=== PATIENT | female | born 1995 | race Caucasian/White ===

== ENCOUNTER 2017-08-22 15:40 | Observation (INO) | payer SELFPAY ==
[~2017-08-22] VITALS: Ht 157.5 cm; Wt 63.5 kg
[~2017-08-22 15:40] MED LIST: HYDR-3720 PO
[2017-08-22 17:09] LABS: BASOPHILS # (AUTO) 0.1 10^3/uL (0.0-0.1); BASOPHILS % (AUTO) 1 % (0-10); EOSINOPHILS # (AUTO) 0.4 10^3/uL (0.0-0.3); EOSINOPHILS % (AUTO) 4 % (0-10); HEMATOCRIT 31 % (35-52); HEMOGLOBIN 10.7 G/DL (11.5-16.0); LYMPHOCYTES # (AUTO) 3.5 X 10^3 (1.0-4.0); LYMPHOCYTES % (AUTO) 34 % (12-44); MEAN CORPUSCULAR HEMOGLOBIN 28 PG (25-34); MEAN CORPUSCULAR HGB CONC 34 G/DL (32-36); MEAN CORPUSCULAR VOLUME 82 FL (80-99); MEAN PLATELET VOLUME 9.2 FL (7.4-10.4); MONOCYTES # (AUTO) 0.7 X 10^3 (0.0-1.0); MONOCYTES % (AUTO) 6 % (0-12); NEUTROPHILS # (AUTO) 5.8 X 10^3 (1.8-7.8); NEUTROPHILS % (AUTO) 55 % (42-75); PLATELET COUNT 391 10^3/uL (130-400); RED CELL DISTRIBUTION WIDTH 12.5 % (10.0-14.5); WHITE BLOOD COUNT 10.4 10^3/uL (4.3-11.0)
[2017-08-22 17:10] LABS: BILIRUBIN,URINE NEGATIVE (NEGATIVE); CLARITY,URINE BLOODY; COLOR,URINE RED; GLUCOSE, URINE (UA) NEGATIVE (NEGATIVE); KETONES,URINE NEGATIVE (NEGATIVE); LEUKOCYTE ESTERASE ,URINE NEGATIVE (NEGATIVE); NITRITE,URINE NEGATIVE (NEGATIVE); PH,URINE 7 (5-9); PROTEIN,URINE 4+ (NEGATIVE); UROBILINOGEN,URINE NORMAL (NORMAL)
[2017-08-22] MEDS ORDERED: LORA10TA7 PO (17:12)
[2017-08-22 17:22] LABS: BACTERIA,URINE NEGATIVE /HPF; RBC,URINE TNTC /HPF
[2017-08-22 17:29] LABS: ALANINE AMINOTRANSFERASE 20 U/L (0-55); ALBUMIN 4.3 GM/DL (3.2-4.5); ALKALINE PHOSPHATASE 64 U/L (40-136); BILIRUBIN,TOTAL 0.3 MG/DL (0.1-1.0); BUN/CREATININE RATIO 14; CARBON DIOXIDE 26 MMOL/L (21-32); CHLORIDE 106 MMOL/L (98-107); CREATININE SERUM 0.76 MG/DL (0.60-1.30); GFR ESTIMATED > 60; GLUCOSE 91 MG/DL (70-105); POTASSIUM 3.7 MMOL/L (3.6-5.0); SODIUM 140 MMOL/L (135-145); TOTAL PROTEIN 7.2 GM/DL (6.4-8.2)
[2017-08-22] MEDS ORDERED: KETOROLAC 30 MG/ML VIAL IVP STA (18:22)
[2017-08-22] MEDS ORDERED: NS IV 1000 ML 1,000 ML IV ONE ×2 (18:22→21:13)
--- NOTE | 2017-08-22 18:27 | Diagnostic Imaging Report ---
INDICATION: Heavy bleeding and clots. FINDINGS: There is complex fluid distending the lower endometrial and endocervical canal. There does appear to be some color Doppler blood flow to the abnormal thickened endometrium. No myometrial mass. There is an anechoic simple right ovarian cyst measuring 2.3 cm. The adnexa and ovaries appeared otherwise normal. IMPRESSION: Heterogeneous thickening and complex fluid, likely blood distending the lower endometrial and endocervical canal with abnormal color Doppler blood flow. Dictated by: Dictated on workstation # [id number]
[2017-08-22] MEDS ORDERED: ONDANSETRON 4 MG/2 ML (SDV) Z0FRAN IVP ONE ×2 (18:30→23:00)
--- NOTE | 2017-08-22 18:38 | ED GU-Female ---
General Chief Complaint: -Female Stated Complaint: HEAVY VAGINAL BLEEDING Nursing Triage Note: Pt reports having heaving vaginal bleeding/clots since tuesday. pt reports being able to feel when she has the clots passing, and saturating an overnight pad every 1 1/2 hr. reports having irregular periods x 4 months now. pt is not on control and does not believe she is d/t every test being negative. nausea/vomiting on mothers day and has had intermittent nausea since then. pt has had a miscarriage approx 4-5 yrs ago and has had painful periods and painful intercourse since, but never to this extent. Nursing Sepsis Screen: No Definite Risk Source: patient Exam Limitations: no limitations History of Present Illness Date Seen by Provider: August 22, 2017 Initial Comments 21-year-old female patient presents to the emergency department with complaints of heavy vaginal bleeding beginning Tuesday. Patient reports having a D&C for a missed in 2012. States her periods have never been normal since. Reports last 4 months having irregular periods with increasing flow. Does complain of nausea and vomiting Mother's Day. Intermittent nausea today. Patient is A1. Denies using control or having an IUD/implant. Denies seeing anyone for the irregular menses. Timing/Duration: constant, other (onset 08/19/17) Severity/Quality: aching, cramping Location: suprapubic Radiation: none Activities at Onset: none Sexual [place] History: less than 2 months ago, single partner Modifying Factors: Worsens With Palpation Allergies and Home Medications Allergies Uncoded Allergies: sulfa (Allergy, Mild, 10/18/12) Home Medications Loratadine 10 Mg Tablet, 10 MG PO DAILY, (Reported) Tranexamic Acid 650 Mg Tablet, 650 MG PO TID Prescribed by: ANDRESSA MATTSON on 08/22/172000 Patient Home Medication List Home Medication List Reviewed: Yes Review of Systems Constitutional: No chills; dizziness; No fever; malaise EENTM: no symptoms reported Respiratory: No cough, No dyspnea on exertion, No short of breath Cardiovascular: No chest pain, No edema, No palpitations, No syncope Gastrointestinal: see HPI, abdominal pain; No constipation, No diarrhea; loss of appetite; No melena; nausea; No vomiting Genitourinary: see HPI; denies burning, denies dysuria, denies frequency, denies flank pain; pain, other (vaginal bleeding) : No (reports taking multiple tests at home which were negative) Musculoskeletal: no symptoms reported Skin: no symptoms reported Psychiatric/Neurological: No Symptoms Reported All Other Systemes Reviewed Negative Unless Noted: Yes (Negative excepted noted.) Past Eqxdjtb-Bipvdf-[id number] Hx Patient Social History Alcohol Use: Denies Use Recreational Drug Use: No Smoking Status: Never a Smoker 2nd Hand Smoke Exposure: No Recent Foreign Travel: No Contact w/Someone Who Travel: No Recent Infectious Disease Expo: No Recent Hopitalizations: No Physical Abuse: No Sexual Abuse: No Mistreated: No Fear: No Immunizations Up To Date Tetanus Booster (TDap): More than 5yrs PED Vaccines UTD: Yes Seasonal Allergies Seasonal Allergies: Yes Past Medical History Surgeries: Yes (D&C 2012) Respiratory: No Cardiac: No Neurological: No : No (unsure) Hx : 1 Hx Para: 0 Hx Total # of Abortions (Sp): 1 Female Reproductive Disorders: Menstrual Problems (since D&C in 2012) Sexually Transmitted Disease: No HIV/AIDS: No Genitourinary: No Gastrointestinal: No Musculoskeletal: No Endocrine: No HEENT: No Cancer: No Psychosocial: No Nursing Suicide Risk Score: 1 Integumentary: No Blood Disorders: No Family Medical History Reviewed Nursing Family Hx No Pertinent Family Hx Physical Exam Vital Signs Vital Signs - First Documented 08/22/17 08/22/17 16:48 23:05 Temp 98.0 Pulse 132 Resp 18 B/P (MAP) 135/97 (110) Pulse Ox 100 O2 Delivery Room Air Capillary Refill : Less Than 3 Seconds General Appearance: WD/WN, no apparent distress HEENT: PERRL/EOMI, pharynx normal Neck: supple, normal inspection Cardiovascular: normal peripheral pulses, regular rate, rhythm, no edema, no gallop, no murmur Respiratory: lungs clear, normal breath sounds, no respiratory distress, no accessory muscle use Gastrointestinal: normal bowel sounds, soft, no organomegaly; No distended; guarding (suprapubic guarding); No rebound; tenderness (suprapubic tenderness) Pelvic: normal external exam; No lesions, No mass; tender w/ cervical motion, tender adnexa, tender uterus, vaginal bleeding (a small amount of dark blood noted without clots or active bleeding.) Back: normal inspection, no CVA tenderness Extremities: no pedal edema, normal capillary refill Neurologic/Psychiatric: alert, normal mood/affect, oriented x 3 Skin: warm/dry, pallor Progress/Results/Core Measures Suspected Sepsis Recent Fever Within 48 Hours: No Infection Criteria Present: None New/Unexplained Altered Menta: No Sepsis Screen: No Definite Risk SIRS Temperature: Pulse: 132 Respiratory Rate: 18 Laboratory Tests 08/22/17 17:00: White Blood Count 10.4 08/22/17 21:00: White Blood Count 11.5H Blood Pressure 135 /97 Mean: 110 Laboratory Tests 08/22/17 17:00: Creatinine 0.76, Platelet Count 391, Total Bilirubin 0.3 08/22/17 17:02: INR Comment 1.0 08/22/17 21:00: Platelet Count 298 Results/Orders Lab Results Laboratory Tests Test 08/22/17 16:51 08/22/17 17:00 08/22/17 17:02 08/22/17 21:00 Range/Units Urine Color RED H Urine Clarity BLOODY H Urine pH 7 5-9 Urine Specific [place] 1.010 L 1.016-1.022 Urine Protein 4+ NEGATIVE Urine Glucose (UA) NEGATIVE NEGATIVE Urine Ketones NEGATIVE NEGATIVE Urine Nitrite NEGATIVE NEGATIVE Urine Bilirubin NEGATIVE NEGATIVE Urine Urobilinogen NORMAL NORMAL MG/DL Urine Leukocyte Esterase NEGATIVE NEGATIVE Urine RBC (Auto) 5+ H NEGATIVE Urine RBC TNTC H /HPF Urine WBC 2-5 /HPF Urine Squamous Epithelial Cells NONE /HPF Urine Crystals NONE /LPF Urine Bacteria NEGATIVE /HPF Urine Casts NONE /LPF Urine Mucus NEGATIVE /LPF Urine Culture Indicated NO White Blood Count 10.4 11.5 H 4.3-11.0 10^3/uL Red Blood Count 3.80 L 3.08 L 4.35-5.85 10^6/uL Hemoglobin 10.7 L 8.7 L 11.5-16.0 G/DL Hematocrit 31 L 26 L 35-52 % Mean Corpuscular Volume 82 83 80-99 FL Mean Corpuscular Hemoglobin 28 28 25-34 PG Mean Corpuscular Hemoglobin Concent 34 34 32-36 G/DL Red Cell Distribution Width 12.5 12.1 10.0-14.5 % Platelet Count 391 298 130-400 10^3/uL Mean Platelet Volume 9.2 9.4 7.4-10.4 FL Neutrophils (%) (Auto) 55 58 42-75 % Lymphocytes (%) (Auto) 34 34 12-44 % Monocytes (%) (Auto) 6 4 0-12 % Eosinophils (%) (Auto) 4 3 0-10 % Basophils (%) (Auto) 1 1 0-10 % Neutrophils # (Auto) 5.8 6.7 1.8-7.8 X 10^3 Lymphocytes # (Auto) 3.5 3.9 1.0-4.0 X 10^3 Monocytes # (Auto) 0.7 0.5 0.0-1.0 X 10^3 Eosinophils # (Auto) 0.4 H 0.4 H 0.0-0.3 10^3/uL Basophils # (Auto) 0.1 0.1 0.0-0.1 10^3/uL Sodium Level 140 135-145 MMOL/L Potassium Level 3.7 3.6-5.0 MMOL/L Chloride Level 106 98-107 MMOL/L Carbon Dioxide Level 26 21-32 MMOL/L Anion Gap 8 5-14 MMOL/L Blood Urea Nitrogen 11 7-18 MG/DL Creatinine 0.76 0.60-1.30 MG/DL Estimat Glomerular Filtration Rate > 60 BUN/Creatinine Ratio 14 Glucose Level 91 70-105 MG/DL Calcium Level 9.0 8.5-10.1 MG/DL Total Bilirubin 0.3 0.1-1.0 MG/DL Aspartate Amino Transf (AST/SGOT) 19 5-34 U/L Alanine Aminotransferase (ALT/SGPT) 20 0-55 U/L Alkaline Phosphatase 64 40-136 U/L Total Protein 7.2 6.4-8.2 GM/DL Albumin 4.3 3.2-4.5 GM/DL Serum Test, Qualitative NEGATIVE NEGATIVE Prothrombin Time 13.3 12.2-14.7 SEC INR Comment 1.0 0.8-1.4 Activated Partial Thromboplast Time 29 24-35 SEC Test 08/22/17 23:44 Range/Units My Orders Orders - ANDRESSA MATTSON Cbc With Automated Diff (08/22/17 16:47) Comprehensive Metabolic Panel (08/22/17 16:47) Hcg,Qualitative Serum (08/22/17 16:47) Ua Culture If Indicated (08/22/17 16:47) Saline Lock/Iv-Start (08/22/17 16:47) Us Non Ob Pelvis Comp/Transvag (08/22/17 17:40) Ns Iv 1000 Ml (Sodium Chloride 0.9%) (08/22/17 18:22) Ondansetron Injection (Zofran Injectio (08/22/17 18:30) Ketorolac Injection (Toradol Injection) (08/22/17 18:22) Protime With Inr (08/22/17 18:22) Partial Thromboplastin Time (08/22/17 18:22) Tranexamic Acid Injection (Cyklokapron I (08/22/17 19:45) Cbc With Automated Diff (08/22/17 20:56) Saline Lock/Iv-Start (08/22/17 21:13) Ns Iv 1000 Ml (Sodium Chloride 0.9%) (08/22/17 21:13) Acetaminophen Tablet (Tylenol Tablet) (08/22/17 21:27) Ondansetron Injection (Zofran Injectio (08/22/17 23:00) Wet Prep (08/22/17 23:29) Neisseria Gonorrhea Dna (08/22/17 23:29) Genital Culture (08/22/17 23:29) Chlamydia Trachomatis Swab (08/22/17 23:29) Morphine Injection (Morphine Injection (08/22/17 23:56) Medications Given in ED Current Medications Medications Dose Ordered Sig/Vera Route Start Time Stop Time Status Last Admin Dose Admin Ondansetron HCl 4 mg ONCE ONCE IVP 08/22/17 18:30 08/22/17 18:31 DC 08/22/17 18:32 4 MG Sodium Chloride 1,000 ml @ 0 mls/hr Q0M ONCE IV 08/22/17 18:22 08/22/17 18:24 DC 08/22/17 18:32 0 MLS/HR Sodium Chloride 1,000 ml @ 0 mls/hr Q0M ONCE IV 08/22/17 21:13 08/22/17 21:14 DC 08/22/17 21:38 0 MLS/HR Tranexamic Acid 600 mg ONCE ONCE IV 08/22/17 19:45 08/22/17 19:53 DC 08/22/17 20:18 600 MG Vital Signs/I&O 08/22/17 08/22/17 16:48 23:05 Temp 98.0 Pulse 132 132 Resp 18 18 B/P (MAP) 135/97 (110) 135/97 (110) Pulse Ox 100 100 O2 Delivery Room Air Capillary Refill : Less Than 3 Seconds Blood Pressure Mean: 110 Diagnostic Imaging Diagonstic Imaging: Ultrasound Plain Films/CT/US/NM/MRI: pelvis Comments US NON OB PELVIS COMP/TRANSVAG INDICATION: Heavy bleeding and clots. FINDINGS: There is complex fluid distending the lower endometrial and endocervical canal. There does appear to be some color Doppler blood flow to the abnormal thickened endometrium. No myometrial mass. There is an anechoic simple right ovarian cyst measuring 2.3 cm. The adnexa and ovaries appeared otherwise normal. IMPRESSION: Heterogeneous thickening and complex fluid, likely blood distending the lower endometrial and endocervical canal with abnormal color Doppler blood flow. Dictated on workstation # [id number] Reviewed: Reviewed by Me (radiology report reviewed by me) Departure Communication (Admissions) Dr. Samia Saunders 2049 patient was noted to become pale, lightheaded, and diaphoretic with sitting up. Patient is alert/oriented 4, no acute distress. Lungs clear to auscultation, cardiac vascular regular rate and rhythm, no murmur. Patient is pale and diaphoretic. Change in condition discussed with Dr. Saunders. Request repeat CBC. Impression Primary Impression: Acute blood loss anemia Additional Impressions: Menorrhagia Qualified Codes: N92.1 - Excessive and frequent menstruation with irregular cycle Ovarian cyst Qualified Codes: N83.201 - Unspecified ovarian cyst, right side Nausea & vomiting Abdominal pain Disposition: ADMITTED INPATIENT Condition: Stable Admissions Decision to Admit Reason: Admit from ER (General) Decision to Admit/Date: August 22, 2017 Time/Decision to Admit Time: 23:30 Departure-Patient Inst. Referrals: NO,LOCAL PHYSICIAN (PCP) Primary Care Physician SAMIA SAUNDERS DO Add. Discharge Instructions: All discharge instructions reviewed with patient and/or family. Voiced understanding. ANDRESSA MATTSON August 22, 2017 18:38
[2017-08-22 18:40] LABS: PROTHROMBIN TIME PATIENT 13.3 SEC (12.2-14.7)
[2017-08-22] MEDS ORDERED: TRANEXAMIC ACID 100 MG/ML 10 ML INJECTION IV ONE (19:45)
[2017-08-22] MEDS ORDERED: TRAN650T5 PO (20:01)
[2017-08-22 21:10] LABS: BASOPHILS # (AUTO) 0.1 10^3/uL (0.0-0.1); BASOPHILS % (AUTO) 1 % (0-10); EOSINOPHILS # (AUTO) 0.4 10^3/uL (0.0-0.3); EOSINOPHILS % (AUTO) 3 % (0-10); HEMATOCRIT 26 % (35-52); HEMOGLOBIN 8.7 G/DL (11.5-16.0); LYMPHOCYTES # (AUTO) 3.9 X 10^3 (1.0-4.0); LYMPHOCYTES % (AUTO) 34 % (12-44); MEAN CORPUSCULAR HEMOGLOBIN 28 PG (25-34); MEAN CORPUSCULAR HGB CONC 34 G/DL (32-36); MEAN CORPUSCULAR VOLUME 83 FL (80-99); MEAN PLATELET VOLUME 9.4 FL (7.4-10.4); MONOCYTES # (AUTO) 0.5 X 10^3 (0.0-1.0); MONOCYTES % (AUTO) 4 % (0-12); NEUTROPHILS # (AUTO) 6.7 X 10^3 (1.8-7.8); NEUTROPHILS % (AUTO) 58 % (42-75); PLATELET COUNT 298 10^3/uL (130-400); RED BLOOD COUNT 3.08 10^6/uL (4.35-5.85); RED CELL DISTRIBUTION WIDTH 12.1 % (10.0-14.5); WHITE BLOOD COUNT 11.5 10^3/uL (4.3-11.0)
[2017-08-22] MEDS ORDERED: ACETAMINOPHEN 500 MG TAB (TYLENOL) PO STA (21:27)
[2017-08-22] MEDS ORDERED: medroxyPROGESTERone 10 MG (PROVERA) TAB PO ONE (23:45)
[2017-08-22] MEDS ORDERED: morphine INJ 10 MG/ML 1ML (SYR OR VIAL) IVP STA (23:56)
[2017-08-23] MEDS ORDERED: morphine INJ 4 MG/ML 1 ML (VIAL/SYRINGE) ONE (00:05)
[2017-08-23] MEDS ORDERED: LACTATED RINGERS 1,000 ML IV SCH (00:15)
[2017-08-23 00:23] VITALS: BP 121/78
[2017-08-23] MEDS ORDERED: fentaNYL INJECTION 100 MCG/2 ML AMP IVP PRN (00:30)
[2017-08-23] MEDS ORDERED: HYDROcodone/APAP 5 MG/325 MG (LORTAB) TAB PO PRN (00:30)
[2017-08-23] MEDS ORDERED: METOCLOPRAMIDE INJ 10 MG/2 ML (REGLAN) IVP PRN (00:30)
[2017-08-23] MEDS ORDERED: ONDANSETRON 4 MG/2 ML (SDV) Z0FRAN IVP PRN (00:30)
--- OUTSIDE RECORDS SUMMARY | 2017-08-23 02:45 | XMS REPORT | Continuity of Care Document ---
Author Author [facility] Organization [facility] Address Unknown Phone Unavailable Allergies There is no data. Medications There is no data. Problems Date Dx Coded Attending Type Code Diagnosis Diagnosed By 12/30/2008 JOSE CHURCH DO V05.4 VARICELLA, CHICKENPOX 12/30/2008 JOSE CHURCH DO V06.5 DT, TETANUS-DIPHTHERIA [Td] ,TDAP 08/18/2010 JOSE CHURCH DO 719.47 PAIN IN JOINT INVOLVING ANKLE AND FOOT 10/13/2011 JOSE CHURCH DO 785.1 PALPITATIONS 06/18/2013 JOSE CHURCH DO 692.6 CONTACT DERMATITIS AND OTHER ECZEMA DUE TO PLANTS (EXCEPT FOOD) Procedures Code [place] [address] THERAPUTIC INJ SQ/IM 06/18/2013 J1030 DEPO MEDROL 40 MG INJ 06/18/2013 J3301 KENALOG INJ, PER 10 MG 06/18/2013 Results There is no data. Encounters ACCT No. Visit Date/Time Discharge Status Pt. Type Provider Facility Loc./Unit Complaint [id number] 10/18/2012 11:14:00 10/18/2012 14:50:00 DIS Outpatient [id number] 06/18/2013 13:51:00 06/18/2013 23:59:59 CLS Outpatient JOSE CHURCH DO
[2017-08-23] MEDS ORDERED: KETOROLAC 30 MG/ML VIAL IVP PRN (03:00)
[2017-08-23 04:54] VITALS: BP 111/57
[2017-08-23 07:38] LABS: BASOPHILS % (AUTO) 1 % (0-10); EOSINOPHILS # (AUTO) 0.3 10^3/uL (0.0-0.3); EOSINOPHILS % (AUTO) 4 % (0-10); HEMATOCRIT 24 % (35-52); LYMPHOCYTES # (AUTO) 4.1 X 10^3 (1.0-4.0); LYMPHOCYTES % (AUTO) 47 % (12-44); MEAN CORPUSCULAR HEMOGLOBIN 28 PG (25-34); MEAN CORPUSCULAR HGB CONC 34 G/DL (32-36); MEAN CORPUSCULAR VOLUME 84 FL (80-99); MEAN PLATELET VOLUME 8.8 FL (7.4-10.4); MONOCYTES # (AUTO) 0.5 X 10^3 (0.0-1.0); MONOCYTES % (AUTO) 6 % (0-12); NEUTROPHILS # (AUTO) 3.8 X 10^3 (1.8-7.8); NEUTROPHILS % (AUTO) 43 % (42-75); PLATELET COUNT 305 10^3/uL (130-400); RED BLOOD COUNT 2.84 10^6/uL (4.35-5.85); RED CELL DISTRIBUTION WIDTH 12.5 % (10.0-14.5); WHITE BLOOD COUNT 8.8 10^3/uL (4.3-11.0)
[2017-08-23 07:57] LABS: ALANINE AMINOTRANSFERASE 16 U/L (0-55); ALBUMIN 3.3 GM/DL (3.2-4.5); ALKALINE PHOSPHATASE 46 U/L (40-136); BILIRUBIN,TOTAL 0.6 MG/DL (0.1-1.0); BUN/CREATININE RATIO 10; CALCIUM 8.1 MG/DL (8.5-10.1); CARBON DIOXIDE 25 MMOL/L (21-32); CHLORIDE 112 MMOL/L (98-107); CREATININE SERUM 0.68 MG/DL (0.60-1.30); GFR ESTIMATED > 60; GLUCOSE 88 MG/DL (70-105); POTASSIUM 3.8 MMOL/L (3.6-5.0); SODIUM 142 MMOL/L (135-145); TOTAL PROTEIN 5.3 GM/DL (6.4-8.2)
[2017-08-23 08:00] VITALS: BP 111/67
--- NOTE | 2017-08-23 08:34 | Short Stay Summary ---
History of Present Illness History of Present Illness Reason for visit/HPI Menorrhagia, anemia (acute blood), nausea, emesis, near syncope Date of Admission August 22, 2017 at 22:57 Date of Discharge 08/23/17 Time Seen by Provider: 08:00 Attending Physician Samia Saunders DO Admitting Physician No,Local Physician Consult This is a 21 year old who presented to the ED with complaint of heavy vaginal bleeding. She reports menses was a few days late (though states they aren't exactly every 28-30 days) and started bleeding on Tuesday. Started passing clots and soaking pads ever 1 - 1 1/2 hours. Reports she has never had menses like this, though she has had heavy menses in the past. Presented to the ED due to this and feeling lightheaded. Reports nausea and emesis last weekend. she Has a history of SAB in 2012 and had dilation and curettage and has had "menstrual problems" since that time. She reportedly had hemoglobin of 10.7 on admit to ED with BP 135/97 and P 135. I was told that her pulse was 90s prior to admission. BP was improved and normalized (but I do not have the recorded number). Hgb decreased to 8.7. She was given TXA x 1 dose and bleeding is much improved. US done from ED showed thickened endometrium Date of Exam: 08/22/17 US NON OB PELVIS COMP/TRANSVAG INDICATION: Heavy bleeding and clots. FINDINGS: There is complex fluid distending the lower endometrial and endocervical canal. There does appear to be some color Doppler blood flow to the abnormal thickened endometrium. No myometrial mass. There is an anechoic simple right ovarian cyst measuring 2.3 cm. The adnexa and ovaries appeared otherwise normal. IMPRESSION: Heterogeneous thickening and complex fluid, likely blood distending the lower endometrial and endocervical canal with abnormal color Doppler blood flow. Dictated by: Dictated on workstation # [id number] Dict: 08/22/171823 Trans: 08/22/171917 Interpreted by: LESLEY SERRANO Electronically signed by: LESLEY SERRANO 08/22/171917 She was going to be dc to home last night. But when she got up to void, was lightheaded and nauseous. She was admitted for observation due to this. Since admission, has had scant bleeding. she has received an additional liter of fluid. She is not nauseous but has no appetite this am. She is not using any type of contraception though she does not want at this time. She does not have a primary physician nor an dispatcher automobile rental at this time. Allergies and Home Medications Allergies Uncoded Allergies: sulfa (Allergy, Mild, 10/18/12) Home Medications Loratadine 10 Mg Tablet, 10 MG PO DAILY, (Reported) Patient Home Medication List Home Medication List Reviewed: Yes Past [place]-Uafxuq Hx Patient Social History Marrital Status: single Number of Children: 0 Alcohol Use: Denies Use Recreational Drug Use: No Smoking Status: Never a Smoker 2nd Hand Smoke Exposure: No Recent Foreign Travel: No Contact w/other who traveled: No Recent Hopitalizations: No Recent Infectious Disease Expo: No Immunizations Up To Date Tetanus Booster (TDap): More than 5yrs Pediatric: Yes Seasonal Allergies Seasonal Allergies: Yes Surgeries Yes (D&C 2012) Respiratory No Cardiovascular No Neurological No Reproductive System : No (unsure) Last Menstrual Period: August 19, 2017 Hx : 1 Hx Para: 0 Hx Total # of Abortions (Spona: 1 Sexually Transmitted Disease: No HIV/AIDS: No Female Reproductive Disorders: Menstrual Problems (since D&C in 2012) Genitourinary No Gastrointestinal No Musculoskeletal No Endocrine History of Endocrine Disorders: No HEENT History of HEENT Disorders: No Cancer No Psychosocial History of Psychiatric Problem: No Integumentary History of Skin or Integumenta: No Blood Transfusions History of Blood Disorders: No Reviewed Nursing Assessment Reviewed/Agree w Nursing PMH: Yes Family Medical History Significant Family History: No Pertinent Family Hx Constitutional: no symptoms reported EENTM: no symptoms reported Respiratory: no symptoms reported Cardiovascular: no symptoms reported Gastrointestinal: LLQ (improved) Genitourinary: no symptoms reported LMP: August 19, 2017 Control/STD Prophylaxis: None Musculoskeletal: no symptoms reported Skin: no symptoms reported Psychiatric/Neurological: No Symptoms Reported All Other Systems Reviewed Negative Unless Noted: Yes Physical Exam Vital Signs Vital Signs - First Documented 08/22/17 08/22/17 16:48 23:05 Temp 98.0 Pulse 132 Resp 18 B/P (MAP) 135/97 (110) Pulse Ox 100 O2 Delivery Room Air Capillary Refill : Less Than 3 Seconds General Appearance: No Apparent Distress, WD/WN Short Stay Diagnosis Discharge Diagnosis-Short Stay Admission Diagnosis: Vaginal hemorrhage, acute blood loss anemia Abnormal uterine bleeding Thickened endometrium Final Discharge Diagnosis: Same Conclusion Labs Laboratory Tests 08/22/17 16:51: Urine Color REDH, Urine Clarity BLOODYH, Urine pH 7, Urine Specific [place] 1.010L, Urine Protein 4+, Urine Glucose (UA) NEGATIVE, Urine Ketones NEGATIVE, Urine Nitrite NEGATIVE, Urine Bilirubin NEGATIVE, Urine Urobilinogen NORMAL, Urine Leukocyte Esterase NEGATIVE, Urine RBC (Auto) 5+H, Urine RBC TNTCH, Urine WBC 2-5, Urine Squamous Epithelial Cells NONE, Urine Crystals NONE, Urine Bacteria NEGATIVE, Urine Casts NONE, Urine Mucus NEGATIVE, Urine Culture Indicated NO 08/22/17 17:00: White Blood Count 10.4, Red Blood Count 3.80L, Hemoglobin 10.7L, Hematocrit 31L , Mean Corpuscular Volume 82, Mean Corpuscular Hemoglobin 28, Mean Corpuscular Hemoglobin Concent 34, Red Cell Distribution Width 12.5, Platelet Count 391, Mean Platelet Volume 9.2, Neutrophils (%) (Auto) 55, Lymphocytes (%) (Auto) 34, Monocytes (%) (Auto) 6, Eosinophils (%) (Auto) 4, Basophils (%) (Auto) 1, Neutrophils # (Auto) 5.8, Lymphocytes # (Auto) 3.5, Monocytes # (Auto) 0.7, Eosinophils # (Auto) 0.4H, Basophils # (Auto) 0.1, Sodium Level 140, Potassium Level 3.7, Chloride Level 106, Carbon Dioxide Level 26, Anion Gap 8, Blood Urea Nitrogen 11, Creatinine 0.76, Estimat Glomerular Filtration Rate > 60, BUN/ Creatinine Ratio 14, Glucose Level 91, Calcium Level 9.0, Total Bilirubin 0.3, Aspartate Amino Transf (AST/SGOT) 19, Alanine Aminotransferase (ALT/SGPT) 20, Alkaline Phosphatase 64, Total Protein 7.2, Albumin 4.3, Serum Test, Qualitative NEGATIVE 08/22/17 17:02: Prothrombin Time 13.3, INR Comment 1.0, Activated Partial Thromboplast Time 29 08/22/17 21:00: White Blood Count 11.5H, Red Blood Count 3.08L, Hemoglobin 8.7L, Hematocrit 26L , Mean Corpuscular Volume 83, Mean Corpuscular Hemoglobin 28, Mean Corpuscular Hemoglobin Concent 34, Red Cell Distribution Width 12.1, Platelet Count 298, Mean Platelet Volume 9.4, Neutrophils (%) (Auto) 58, Lymphocytes (%) (Auto) 34, Monocytes (%) (Auto) 4, Eosinophils (%) (Auto) 3, Basophils (%) (Auto) 1, Neutrophils # (Auto) 6.7, Lymphocytes # (Auto) 3.9, Monocytes # (Auto) 0.5, Eosinophils # (Auto) 0.4H, Basophils # (Auto) 0.1 08/22/17 23:44: 08/23/17 07:28: White Blood Count 8.8, Red Blood Count 2.84L, Hemoglobin 8.0L, Hematocrit 24L, Mean Corpuscular Volume 84, Mean Corpuscular Hemoglobin 28, Mean Corpuscular Hemoglobin Concent 34, Red Cell Distribution Width 12.5, Platelet Count 305, Mean Platelet Volume 8.8, Neutrophils (%) (Auto) 43, Lymphocytes (%) (Auto) 47H , Monocytes (%) (Auto) 6, Eosinophils (%) (Auto) 4, Basophils (%) (Auto) 1, Neutrophils # (Auto) 3.8, Lymphocytes # (Auto) 4.1H, Monocytes # (Auto) 0.5, Eosinophils # (Auto) 0.3, Basophils # (Auto) 0.0, Sodium Level 142, Potassium Level 3.8, Chloride Level 112H, Carbon Dioxide Level 25, Anion Gap 5, Blood Urea Nitrogen 7, Creatinine 0.68, Estimat Glomerular Filtration Rate > 60, BUN/ Creatinine Ratio 10, Glucose Level 88, Calcium Level 8.1L, Total Bilirubin 0.6, Aspartate Amino Transf (AST/SGOT) 14, Alanine Aminotransferase (ALT/SGPT) 16, Alkaline Phosphatase 46, Total Protein 5.3L, Albumin 3.3 Conclusion/Plan Patient is currently stable. Bleeding has slowed or stopped. Will discharge with Iron and lysteda (TXA) for acute bleeding. Follow up in the office for management. Start iron. Repeat US once bleeding has stopped. Consider dilation and curettage at that time if the lining continues to be thickened, though I suspect that the thickening is due to bleeding. Consider OCPs vs Mirena vs Depo Provera for menstrual regulation. SAMIA SAUNDERS DO August 23, 2017 08:34
[2017-08-23] MEDS ORDERED: raNItidine 50 MG/2 ML INJ (ZANTAC) IM/IV SCH (09:00)
[2017-08-23] MEDS ORDERED: FERR-84 PO (09:10)
[2017-08-23] MEDS ORDERED: TRAN650T2 PO (09:10)
--- NOTE | 2017-08-23 09:33 | Discharge Inst-Women's Service ---
Discharge Inst-Women's Serv Depart Medication/Instructions New, Converted or Re-Newed RX: RX on Chart Instructions Rx given for provera 2 po tid x 5 days. Only fill rx if bleeding starts again prior to follow up fill out paperwork and FA paperwork prior to follow up. Call for questions or concerns Start iron twice daily or flintstones complete 2 po twice daily Final Diagnosis menorrhagia acute blood loss anemia vaginal hemorrhage abnormal uterine bleeding Consults/Follow Up Additional Follow Up: Yes (TuesdaySeptember 02 at 10:45. Paperwork given) Activity Activity: Activity as Tolerated Driving Instructions: You May Drive NO SMOKING: NO SMOKING Nothing Inside Vagina: No Douching Diet Discharge Diet: No Restrictions Symptoms to Report to : Bleeding Excessive, Pain Increased, Fever Over 101 Degrees F, Vaginal Bleeding Increase, Cramps in Feet or Legs, Vaginal Discharge Foul For Any Problems or Questions: Contact Your Physician SAMIA SAUNDERS DO August 23, 2017 09:16
[2017-08-23] MEDS ORDERED: MEDR10TA PO (09:34)
--- OUTSIDE RECORDS SUMMARY | 2017-08-23 09:52 | XMS REPORT | Continuity of Care Document ---
Author Author [facility] Organization [facility] Address Unknown Phone Unavailable Allergies There is [...] Procedures Code [place] [address] THERAPUTIC INJ SQ/IM 06/18/2013 J1030 DEPO MEDROL 40 MG INJ 06/18/2013 J3301 KENALOG INJ, PER 10 MG 06/18/2013 Results There is no data. Encounters ACCT No. Visit Date/Time Discharge Status Pt. Type Provider Facility Loc./Unit Complaint [id number] 10/18/2012 11:14:00 10/18/2012 14:50:00 DIS Outpatient [id number] 06/18/2013 13:51:00 06/18/2013 23:59:59 CLS Outpatient JOSE CHURCH DO
== END 2017-08-23 10:30 | disposition home or self-care (01) ==
LOC: EDUNIT# 15:40 → ER 15:43 → WS 22:57 → UNDOADMOB 22:57 → WS 23:59 → UNDODISOB 08-23 10:30
PROVIDERS: ADMIT Obstetrics & Gynecology; ATTEND Obstetrics & Gynecology
DX: D62 Acute posthemorrhagic anemia (principal); N92.1 Excessive and frequent menstruation with irregular cycle; N83.201 Unspecified ovarian cyst, right side; R93.5 Abnormal findings on diagnostic imaging of other abdominal regions, including retroperitoneum
CPT/HCPCS: 36415; 76830; 76856; 80053; 81000; 84703; 85025; 85246; 85610; 85730; 86850; 86900; 86901; 86920; 87070; 87210; 87491; 87591; 96361; 96374; 96375; 96376; G0378

== ENCOUNTER → 2017-09-08 | Outpatient (CLI) | payer SELFPAY ==
[~2017-09-08] MED LIST changes: +FERR-84 PO; +LORA10TA7 PO; +MEDR10TA PO; +TRAN650T2 PO; +TRAN650T5 PO
--- NOTE | 2017-09-08 16:21 | Diagnostic Imaging Report ---
EXAMINATION: Pelvic ultrasound. INDICATION: Pelvic pain. FINDINGS: The previous pelvic ultrasound exam performed on 08/22/2017 noted heterogeneous thickening and complex fluid within the lower endometrium and endocervical canal. That finding is again evident and does not seem to have changed significantly. The etiology of this area of mixed echogenicity is unclear. This could be related to blood products however. This finding does not have the typical appearance of a molar . Even so, correlation with the patient's beta-hCG levels will be recommended. If further study is desired, then hysteroscopy will be recommended. The uterus itself is nongravid and not enlarged measuring 7.9 x 4.5 x 3.8 cm. The endometrial lining in the uterine fundus is not thickened measuring 3 mm. There is no focal mass involving the uterus to suggest a fibroid. The prior exam did note a 1.1 x 2.1 x 2.1 cm simple cyst associated with the right ovary. That cyst has resolved. The ovaries are generally unremarkable. There is no pelvic mass or free fluid collection evident. IMPRESSION: 1. There is a persistent area of mixed echogenicity within the lower uterine segment and cervical canal. This appearance is nonspecific but may well be secondary to blood products. Recommendations as above. 2. The cyst associated with the right ovary seen previously has resolved. 3. There is no acute pelvic abnormality noted. Dictated by: Dictated on workstation # [id number]
== END ==
LOC: RAD 14:04
PROVIDERS: ATTEND Obstetrics & Gynecology
DX: N93.9 Abnormal uterine and vaginal bleeding, unspecified (principal); R93.8 Abnormal findings on diagnostic imaging of other specified body structures
CPT/HCPCS: 76830; 76856

== ENCOUNTER → 2019-09-19 | Outpatient (CLI) | payer SELFPAY ==
--- NOTE | 2019-09-19 12:02 | Diagnostic Imaging Report ---
PROCEDURE: US Non-ob pelvis comp/trans. INDICATION: Pelvic pain. TECHNIQUE: Multiple real time candelario scale sonographic images were obtained of the pelvis transabdominally and endovaginally. CORRELATION STUDY: 09/08/2017 FINDINGS: UTERUS: 8.1 x 3.3 x 4.5 cm. The uterus appears unremarkable. There is a small heterogeneous, predominantly cystic area near the lower uterine segment and cervix. Could be reflective of a cervical nabothian cyst. ENDOMETRIUM: 5 mm. The endometrium appearing unremarkable. RIGHT OVARY: 2.9 x 1.4 x 1.5 The right ovary has an unremarkable appearance. No concerning mass. Blood flow is present. LEFT OVARY: 3.0 x 1.8 x 1.7 cm The left ovary has an unremarkable appearance. No concerning mass. Blood flow is present. No significant free pelvic fluid. IMPRESSION: 1. Heterogeneous cystic region lower uterine segment/cervical region. This was present on prior study. This is nonspecific. Consideration for physical examination and potential Pap if indicated. Dictated by: Dictated on workstation # [id number]
== END ==
LOC: RAD 10:28
PROVIDERS: ATTEND Nurse Practitioner Family
DX: R10.2 Pelvic and perineal pain (principal)
CPT/HCPCS: 76830; 76856

== ENCOUNTER 2022-06-17 15:55 | Emergency (ER) | payer OTHER ==
[~2022-06-17] VITALS: Ht 157 cm; Wt 72.5 kg
[2022-06-17] MEDS ORDERED: NS IV 1000 ML 1,000 ML IV STA ×2 (16:06→17:24)
--- NOTE | 2022-06-17 16:10 | ED Chest Pain ---
General Stated Complaint: HEART PALPITATIONS Source: patient Exam Limitations: no limitations History of Present Illness Date Seen by Provider: Jun 17, 2022 Time Seen by Provider: 16:08 Initial Comments Patient is a 26-year-old female with no known medical problems who presents the ED with heart palpitations. She states that she noticed a fast heart rate on Tuesday. She describes it as she feels like she is running in place. She denies having similar symptoms in the past. She went to the clinic and noted to have a fast heart rate. Was sent to the ER for further evaluation. Patient denies of any excessive caffeine use, energy drink use. Denies history of similar symptoms. No recent upper respiratory infection. Denies any urinary symptoms, drug use, alcohol use. Denies of any recent travels or surgeries, control, known cardiac history. Denies cough, shortness of breath, headache, dizziness, syncope, thyroid Allergies and Home Medications Allergies Uncoded Allergies: sulfa (Allergy, Mild, 10/18/12) Patient Home Medication List Home Medication List Reviewed: Yes Ferrous Sulfate (Iron) 325 Mg Tablet, 325 MG PO DAILY Prescribed by: SAMIA SAUNDERS on 08/23/17 0910 Loratadine (Loratadine) 10 Mg Tablet, 10 MG PO DAILY, (Reported) Entered as Reported by: PAULA CARL on 08/22/17 171 Medroxyprogesterone Acetate (Provera) 10 Mg Tablet, 20 MG PO TID Prescribed by: SAMIA SAUNDERS on 08/23/17 0934 Metoprolol Tartrate (Metoprolol Tartrate) 25 Mg Tablet, 25 MG PO BID PRN for tachycardia Prescribed by: TI SAENZ on 06/17/22 1803 Review of Systems Review of Systems Constitutional: No chills, No diaphoresis, No malaise, No weakness EENTM: No Double Vision, No Eye Pain Respiratory: Denies Cough Cardiovascular: Denies Chest Pain, Denies Edema; Irregular Heart Rate Gastrointestinal: Denies Abdomen Distended, Denies Abdominal Pain, Denies Blood Streaked Stools Musculoskeletal: No back pain, No joint pain Skin: No change in color All Other Systems Reviewed Negative Unless Noted: Yes Past Ihrasds-Kjbygg-Lxbnpt Hx Immunizations Up To Date Tetanus Booster (TDap): More than 5yrs PED Vaccines UTD: Yes Seasonal Allergies Seasonal Allergies: Yes Past Medical History Surgeries: Yes (D&C 2012) Respiratory: No Cardiac: No Neurological: No Female Reproductive Disorders: Menstrual Problems Sexually Transmitted Disease: No HIV/AIDS: No Genitourinary: No Gastrointestinal: No Musculoskeletal: No Endocrine: No HEENT: No Cancer: No Psychosocial: No Integumentary: No Blood Disorders: No Family Medical History No Pertinent Family Hx Physical Exam Vital Signs Vital Signs - First Documented 06/17/22 16:00 Pulse 115 Resp 16 B/P (MAP) 148/96 (113) Pulse Ox 99 O2 Delivery Room Air Capillary Refill : Height, Weight, BMI Height: 5'2.00" Weight: 140lbs. 0.0oz. [id number]; 25.6 BMI Method:Stated General Appearance: No Apparent Distress, WD/WN HEENT: PERRL/EOMI, TMs Normal, Normal ENT Inspection, Pharynx Normal Neck: Full Range of Motion, Normal Inspection, Non Tender, Supple Respiratory: Chest Non Tender, Lungs Clear, Normal Breath Sounds, No Accessory Muscle Use, No Respiratory Distress Cardiovascular: No Edema, No Gallop, No JVD, No Murmur, Tachycardia Gastrointestinal: Normal Bowel Sounds, No Organomegaly, No Pulsatile Mass, Non Tender Rectal: Normal Exam Extremity: Normal Capillary Refill, Normal Inspection, Normal Range of Motion, Non Tender Neurologic/Psychiatric: Alert, Oriented x3, No Motor/Sensory Deficits, Normal Mood/Affect, sheet rock installer II-XII Norm as Tested Skin: Normal Color, Warm/Dry Progress/Results/Core Measures Results/Orders Lab Results Laboratory Tests Test 06/17/22 16:10 06/17/22 16:16 Range/Units White Blood Count 14.4 H 4.3-11.0 10^3/uL Red Blood Count 5.19 H 3.80-5.11 10^6/uL Hemoglobin 14.7 11.5-16.0 g/dL Hematocrit 43 35-52 % Mean Corpuscular Volume 82 80-99 fL Mean Corpuscular Hemoglobin 28 25-34 pg Mean Corpuscular Hemoglobin Concent 35 32-36 g/dL Red Cell Distribution Width 12.4 10.0-14.5 % Platelet Count 344 130-400 10^3/uL Mean Platelet Volume 8.9 L 9.0-12.2 fL Immature Granulocyte % (Auto) 2 % Neutrophils (%) (Auto) 53 42-75 % Lymphocytes (%) (Auto) 38 12-44 % Monocytes (%) (Auto) 6 0-12 % Eosinophils (%) (Auto) 1 0-10 % Basophils (%) (Auto) 1 0-10 % Neutrophils # (Auto) 7.7 1.8-7.8 10^3/uL Lymphocytes # (Auto) 5.4 H 1.0-4.0 10^3/uL Monocytes # (Auto) 0.9 0.0-1.0 10^3/uL Eosinophils # (Auto) 0.1 0.0-0.3 10^3/uL Basophils # (Auto) 0.1 0.0-0.1 10^3/uL Immature Granulocyte # (Auto) 0.2 H 0.0-0.1 10^3/uL Neutrophils % (Manual) 55 % Lymphocytes % (Manual) 42 % Monocytes % (Manual) 3 % Band Neutrophils % Blood Morphology Comment NORMAL Prothrombin Time 12.6 12.2-14.7 SEC INR Comment 0.9 0.8-1.4 Activated Partial Thromboplast Time 27 24-35 SEC D-Dimer 0.32 0.00-0.49 UG/ML Sodium Level 136 135-145 MMOL/L Potassium Level 3.8 3.6-5.0 MMOL/L Chloride Level 100 98-107 MMOL/L Carbon Dioxide Level 26 21-32 MMOL/L Anion Gap 10 5-14 MMOL/L Blood Urea Nitrogen 11 7-18 MG/DL Creatinine 0.78 0.60-1.30 MG/DL Estimat Glomerular Filtration Rate 106 BUN/Creatinine Ratio 14 Glucose Level 90 70-105 MG/DL Calcium Level 9.5 8.5-10.1 MG/DL Corrected Calcium 9.1 8.5-10.1 MG/DL Magnesium Level 2.1 1.6-2.4 MG/DL Total Bilirubin 0.5 0.1-1.0 MG/DL Aspartate Amino Transf (AST/SGOT) 21 5-34 U/L Alanine Aminotransferase (ALT/SGPT) 27 0-55 U/L Alkaline Phosphatase 61 40-136 U/L Myoglobin 13.6 10.0-92.0 NG/ML Troponin I < 0.028 <0.028 NG/ML B-Type Natriuretic Peptide < 10.0 <100.0 PG/ML Total Protein 8.0 6.4-8.2 GM/DL Albumin 4.5 3.2-4.5 GM/DL Thyroid Stimulating Hormone (TSH) 1.29 0.35-4.94 UIU/ML Urine Color YELLOW Urine Clarity CLEAR Urine pH 6.5 5-9 Urine Specific [place] 1.010 L 1.016-1.022 Urine Protein NEGATIVE NEGATIVE Urine Glucose (UA) NEGATIVE NEGATIVE Urine Ketones NEGATIVE NEGATIVE Urine Nitrite NEGATIVE NEGATIVE Urine Bilirubin NEGATIVE NEGATIVE Urine Urobilinogen 0.2 < = 1.0 MG/DL Urine Leukocyte Esterase 1+ H NEGATIVE Urine RBC (Auto) TRACE-I H NEGATIVE Urine RBC NONE /HPF Urine WBC 0-2 /HPF Urine Squamous Epithelial Cells 0-2 /HPF Urine Crystals PRESENT H /LPF Urine Amorphous Sediment FEW LEXUS PHOSPHATE H /LPF Urine Bacteria TRACE /HPF Urine Casts NONE /LPF Urine Mucus NEGATIVE /LPF Urine Culture Indicated NO Urine Test NEGATIVE NEGATIVE Urine Opiates Screen NEGATIVE NEGATIVE Urine Oxycodone Screen NEGATIVE NEGATIVE Urine Methadone Screen NEGATIVE NEGATIVE Urine Propoxyphene Screen NEGATIVE NEGATIVE Urine Barbiturates Screen NEGATIVE NEGATIVE Ur Tricyclic Antidepressants Screen NEGATIVE NEGATIVE Urine Phencyclidine Screen NEGATIVE NEGATIVE Urine Amphetamines Screen NEGATIVE NEGATIVE Urine Methamphetamines Screen NEGATIVE NEGATIVE Urine Benzodiazepines Screen NEGATIVE NEGATIVE Urine Cocaine Screen NEGATIVE NEGATIVE Urine Cannabinoids Screen NEGATIVE NEGATIVE My Orders Orders - GRCAIE DENNIS PA Ekg Tracing (06/17/22 15:58) Cbc With Automated Diff (06/17/22 16:06) Magnesium (06/17/22 16:06) Chest 1 View, Ap/Pa Only (06/17/22 16:06) Comprehensive Metabolic Panel (06/17/22 16:06) Myoglobin Serum (06/17/22 16:06) Protime With Inr (06/17/22 16:06) Partial Thromboplastin Time (06/17/22 16:06) Monitor-Rhythm Ecg Trace Only (06/17/22 16:06) Ed Iv/Invasive Line Start (06/17/22 16:06) Troponin I Samm (06/17/22 16:06) Ns Iv 1000 Ml (Sodium Chloride 0.9%) (06/17/22 16:06) Orthostatic Vital Signs (Adult (06/17/22 16:07) Thyroid Stimulating Hormone (06/17/22 16:07) Drug Screen Stat (Urine) (06/17/22 16:07) Hcg,Qualitative Urine (06/17/22 16:07) Urinalysis (06/17/22 16:07) Manual Differential (06/17/22 16:10) Bnp [place] (06/17/22 16:36) Fibrin Degradation Products (06/17/22 16:41) Metoprolol Tartrate Injection (Lopressor (06/17/22 17:30) Ns Iv 1000 Ml (Sodium Chloride 0.9%) (06/17/22 17:24) Medications Given in ED Current Medications Medications Dose Ordered Sig/Vera Route Start Time Stop Time Status Last Admin Dose Admin Metoprolol Tartrate 5 mg ONCE ONCE IV 06/17/22 17:30 06/17/22 17:35 DC 06/17/22 17:40 5 MG Vital Signs/I&O 06/17/22 06/17/22 06/17/22 16:00 16:25 18:34 Pulse 115 107 92 104 111 Resp 16 21 B/P (MAP) 148/96 (113) 139/88 (105) 122/84 122/76 (91) 129/94 (106) Pulse Ox 99 98 O2 Delivery Room Air Room Air Comment Sinus tachycardia, 108 bpm, QRS duration 94 MS, QTc 395 MS Departure Communication (PCP) Patient presents ED with heart palpitations and feels like she is running. She feels like her pulse is fast. Reviewed previous ER visits, H&P's. She has not been seen for any previous visit. Cardiac work-up with CBC, CMP, urinalysis , drug screen, test, chest x-ray, EKG, troponin. Patient denies of any alcohol use. She is not concern for . Urinalysis was negative for infection or . Drug screen unremarkable. She denies excessive caffe ine use or energy drink use. Denies of any stimulants. No history of previous symptoms. CBC showed an elevated white blood count of 14. She denies of any recent URI symptoms, urinary symptoms, cough, abdominal pain, vomiting or diarrhea suggesting infectious etiology. She was afebrile. Does not appear in shock. Patient BP within normal range. She is not anemic., Kidney function, liver function within normal limits. Troponin, BNP was unremarkable. EKG sinus tachycardia without evidence of A-fib, a flutter, Brugada syndrome, WPW, SVT. she denies of any excessive weight loss, night sweats, loss of hair. TSH was within normal limits. She was started on a liter of fluid. She did not become tachycardic during orthostatics. She was given a second liter of fluid due to the heart rate remaining 115. Contacted Dr. Rivas litigation claim representative who recommended 5 mg Lopressor secondary to her heart rate. Improvement of her heart rate to as low as 90 bpm. She states the feeling that she is running improved. He r ecommended metoprolol 25 mg twice daily as needed for her heart heart rate. Provided instructions for patient. Recommend to follow-up in the office next week with Dr. Rivas. Discussed staying hydrated. Ruled out hyperthyroidism, hyper or hypoglycemia, substance abuse, ACS, PE with a negative D-dimer, hypoxia with oxygen level at 98% on room air, cardiogenic shock, no anticholinergic use, evidence of cardiac tamponade with no hypotension/ bulging neck veins/muffled heart sounds, hemorrhaging. She denies of shortness of breath, dizziness, chest pain. Denies syncope. She does not appear anxious. elevated white blood count could be infectious versus reactive. Patient is safe for discharge with strict return precautions and follow-up with cardiology Dr. Rivas. Recommend recheck of her lab work with her primary care physician in the next 2 or 3 days. Return precaution were discussed. Stable blood pressure after Lopressor Impression Primary Impression: Sinus tachycardia Disposition: HOME, SELF-CARE Condition: Stable Departure-Patient Inst. Decision time for Depature: 17:59 Referrals: [facility]/YANI GOMEZ MD NO,LOCAL PHYSICIAN (PCP) Primary Care Physician Patient Instructions: Sinus Tachycardia (DC) Scripts Metoprolol Tartrate (Metoprolol Tartrate) 25 Mg Tablet 25 MG PO BID PRN for tachycardia, #10 TAB Prov: GRACIE DENNIS 06/17/22 Work/School Note: Work Release Form Date Seen in the Emergency Department: Jun 17, 2022 Return to Work: Jun 21, 2022 GRACIE DENNIS Jun 17, 2022 16:10
[2022-06-17 16:21] LABS: BASOPHILS # (AUTO) 0.1 10^3/uL (0.0-0.1); BASOPHILS % (AUTO) 1 % (0-10); EOSINOPHILS # (AUTO) 0.1 10^3/uL (0.0-0.3); EOSINOPHILS % (AUTO) 1 % (0-10); HEMATOCRIT 43 % (35-52); HEMOGLOBIN 14.7 g/dL (11.5-16.0); LYMPHOCYTES # (AUTO) 5.4 10^3/uL (1.0-4.0); LYMPHOCYTES % (AUTO) 38 % (12-44); MEAN CORPUSCULAR HEMOGLOBIN 28 pg (25-34); MEAN CORPUSCULAR HGB CONC 35 g/dL (32-36); MEAN CORPUSCULAR VOLUME 82 fL (80-99); MEAN PLATELET VOLUME 8.9 fL (9.0-12.2); MONOCYTES # (AUTO) 0.9 10^3/uL (0.0-1.0); MONOCYTES % (AUTO) 6 % (0-12); NEUTROPHILS # (AUTO) 7.7 10^3/uL (1.8-7.8); NEUTROPHILS % (AUTO) 53 % (42-75); PLATELET COUNT 344 10^3/uL (130-400); WHITE BLOOD COUNT 14.4 10^3/uL (4.3-11.0)
[2022-06-17 16:22] LABS: BILIRUBIN,URINE NEGATIVE (NEGATIVE); CLARITY,URINE CLEAR; COLOR,URINE YELLOW; GLUCOSE, URINE (UA) NEGATIVE (NEGATIVE); KETONES,URINE NEGATIVE (NEGATIVE); LEUKOCYTE ESTERASE ,URINE 1+ (NEGATIVE); NITRITE,URINE NEGATIVE (NEGATIVE); PH,URINE 6.5 (5-9); PROTEIN,URINE NEGATIVE (NEGATIVE)
[2022-06-17 16:25] VITALS: BP_SYST 122; BP_SYST 129; BP_SYST 139; BP_DIAS 76; BP_DIAS 88; BP_DIAS 94
[2022-06-17 16:32] LABS: AMORPHOUS SEDIMENT,UR FEW AMOR PHOSPHATE /LPF; BACTERIA,URINE TRACE /HPF; SQUAMOUS EPITHELIAL CELL,UR 0-2 /HPF; WBC,URINE 0-2 /HPF
[2022-06-17 16:36] LABS: ALBUMIN 4.5 GM/DL (3.2-4.5)
[2022-06-17 16:37] LABS: POTASSIUM 3.8 MMOL/L (3.6-5.0)
[2022-06-17 16:38] LABS: CALCIUM 9.5 MG/DL (8.5-10.1)
[2022-06-17 16:38] LABS: AMPHETAMINE SCREEN, URINE NEGATIVE (NEGATIVE); BARBITURATE SCREEN URINE NEGATIVE (NEGATIVE); BENZODIAZEPINES SCREEN URINE NEGATIVE (NEGATIVE); CANNABINOID SCREEN, URINE NEGATIVE (NEGATIVE); COCAINE SCREEN URINE NEGATIVE (NEGATIVE); HCG,QUALITATIVE URINE NEGATIVE (NEGATIVE); METHADONE STAT NEGATIVE (NEGATIVE); OPIATE SCREEN URINE NEGATIVE (NEGATIVE); OXYCODONE STAT NEGATIVE (NEGATIVE); PROPOXYPHENE STAT NEGATIVE (NEGATIVE); TRICYCLIC ANTIDEPRESSANTS SCRE NEGATIVE (NEGATIVE)
[2022-06-17 16:41] LABS: BILIRUBIN,TOTAL 0.5 MG/DL (0.1-1.0)
[2022-06-17 16:43] LABS: CREATININE SERUM 0.78 MG/DL (0.60-1.30)
[2022-06-17 16:45] LABS: MAGNESIUM 2.1 MG/DL (1.6-2.4)
[2022-06-17 16:46] LABS: INR 0.9 (0.8-1.4); PROTHROMBIN TIME PATIENT 12.6 SEC (12.2-14.7)
--- NOTE | 2022-06-17 16:48 | Diagnostic Imaging Report ---
EXAMINATION: Chest 1 view HISTORY: Chest pain COMPARISON: None available. FINDINGS: The lungs are clear without edema or pneumonia. No pleural effusion or pneumothorax. Heart size is normal. IMPRESSION: 1. Clear lungs. Dictated by: Dictated on workstation # [id number]
[2022-06-17 17:14] LABS: LYMPHOCYTES % (MANUAL) 42 %; MONOCYTES % (MANUAL) 3 %; NEUTROPHILS % (MANUAL) 55 %; RBC MORPH NORMAL
[2022-06-17] MEDS ORDERED: meTOprolol 5 MG/5 ML (LOPRESSOR) VIAL IV ONE (17:30)
[2022-06-17] MEDS ORDERED: METO-333 PO (18:03)
[2022-06-17 18:34] VITALS: BP 122/84
== END 2022-06-17 18:34 | disposition home or self-care (01) ==
LOC: EDUNIT# 15:55 → ER 15:57
DX: R00.0 Tachycardia, unspecified (principal); Z28.310 Unvaccinated for COVID-19
CPT/HCPCS: 36415; 71045; 80053; 80306; 81000; 83735; 83874; 83880; 84443; 84484; 84703; 85007; 85027; 85379; 85610; 85730; 93005; 93041